=== PATIENT | female | born 1955 | race Caucasian/White ===

== ENCOUNTER 2019-02-02 12:57 | Emergency (ER) | payer OTHER ==
[2019-02-02 13:10] VITALS: BP 176/82; PULSE 82; O2SAT 95
--- NOTE | 2019-02-02 13:23 | ERPHSYRPT ---
- History of Present Illness Time Seen by Provider: 02/02/19 13:22 Source: patient Exam Limitations: no limitations Patient Subjective Stated Complaint: Pt started a medrol dose pack 2 days ago and her sugar today is 242, takes Metformin and Jardiance for diabetes, pt is concerned that her sugar it too high Triage Nursing Assessment: Pt walked into the ER with a stable gait, BS 191 with ER Accucheck, reports that her sugar went up to 242 today and that's the highest it has been, started Medrol dose pack 2 days ago for her right shoulder , hypertensive, doesn't appear to be in any distress Physician History: Pt started a medrol dose pack 2 days ago and her sugar today is 242, takes Metformin and Jardiance for diabetes, pt is concerned that her sugar it too high Timing/Duration: today Associated Symptoms: denies symptoms Allergies/Adverse Reactions: doxycycline Allergy (Verified 02/02/19 13:09) morphine Allergy (Verified 02/02/19 13:09) penicillin G Allergy (Verified 02/02/19 13:09) prochlorperazine [From Compazine] Allergy (Verified 02/02/19 13:09) prochlorperazine edisylate [From Compazine] Allergy (Verified 02/02/19 13:09) prochlorperazine maleate [From Compazine] Allergy (Verified 02/02/19 13:09) Home Medications: Furosemide [Lasix] 20 mg PO DAILY 05/29/15 [History] Lisinopril 10 mg [Zestril 10 MG] 20 mg PO BID 05/29/15 [History] Metformin HCl [Glucophage] 1,000 mg PO BID 05/29/15 [History] Pravastatin Sodium 40 mg PO DAILY 05/29/15 [History] Verapamil HCl 120 mg PO BID 05/29/15 [History] Cyclobenzaprine HCl [Flexeril] 5 mg PO DAILY 02/02/19 [History] Empagliflozin [Jardiance] 25 mg PO DAILY 02/02/19 [History] Methylprednisolone Packet [Medrol Dosepack] 4 mg PO UD 02/02/19 [History] Hx Tetanus, Diphtheria Vaccination/Date Given: No Hx Influenza Vaccination/Date Given: No Hx Pneumococcal Vaccination/Date Given: Yes - Review of Systems Constitutional: No Fever, No Chills Eyes: No Symptoms Ears, Nose, & Throat: No Symptoms Respiratory: No Cough, No Dyspnea Cardiac: No Chest Pain, No Edema, No Syncope Abdominal/Gastrointestinal: No Abdominal Pain, No Nausea, No Vomiting, No Diarrhea Genitourinary Symptoms: No Dysuria Musculoskeletal: No Back Pain, No Neck Pain Skin: No Rash Neurological: No Dizziness, No Focal Weakness, No Sensory Changes Psychological: No Symptoms Endocrine: No Symptoms All Other Systems: Reviewed and Negative - Past Medical History Pertinent Past Medical History: No Neurological History: Migraines ENT History: No Pertinent History Cardiac History: Hypertension, Other Respiratory History: No Pertinent History Endocrine Medical History: Diabetes Type II Musculoskeletal History: No Pertinent History GI Medical History: GERD, Irritable Bowel History: No Pertinent History Psycho-Social History: No Pertinent History Female Reproductive Disorders: No Pertinent History Other Medical History: medication for DMII, palpations of the heart, syncope, loop recorder in the chest - Past Surgical History Past Surgical History: Yes Neuro Surgical History: No Pertinent History Cardiac: No Pertinent History Respiratory: No Pertinent History Gastrointestinal: Cholecystectomy Genitourinary: No Pertinent History Musculoskeletal: Orthopedic Surgery Female Surgical History: Hysterectomy Other Surgical History: TONSILS. BACK SURGERY. 2 ORTHOSCOPIC KNEE SURGERYS. BLADDER REPAIR WITH MESH/VAGINAL HERNIA REPAIR - Social History Smoking Status: Never smoker Exposure to second hand smoke: No Drug Use: none Patient Lives Alone: No - Female History Hx Now: No - Nursing Vital Signs Nursing Vital Signs: Initial Vital Signs Temperature 97.8 F 02/02/19 13:00 Pulse Rate 82 02/02/19 13:00 Blood Pressure 176/82 02/02/19 13:00 O2 Sat by Pulse Oximetry 95 02/02/19 13:00 Pain Scale Pain Intensity 1 - Physical Exam General Appearance: no apparent distress, alert Eye Exam: PERRL/EOMI, eyes nml inspection Ears, Nose, Throat Exam: normal ENT inspection, TMs normal, pharynx normal, moist mucous membranes Neck Exam: normal inspection, non-tender, supple, full range of motion Respiratory Exam: normal breath sounds, lungs clear, No respiratory distress Cardiovascular Exam: regular rate/rhythm, normal heart sounds, normal peripheral pulses Gastrointestinal/Abdomen Exam: soft, normal bowel sounds, No tenderness, No mass Back Exam: normal inspection, normal range of motion, No CVA tenderness, No vertebral tenderness Extremity Exam: normal inspection, normal range of motion, pelvis stable Neurologic Exam: alert, oriented x 3, cooperative, normal mood/affect, nml cerebellar function, nml station & gait, sensation nml, No motor deficits Skin Exam: normal color, warm, dry, No rash Lymphatic Exam: No adenopathy SpO2: 95 - Course Nursing assessment & vital signs reviewed: Yes - Progress Progress: improved Counseled pt/family regarding: diagnosis, need for follow-up - Departure Departure Disposition: Home Clinical Impression: Hyperglycemia, drug-induced Hyperglycemia due to type 2 diabetes mellitus Qualifiers: Diabetes mellitus dedicated intermodal truck driver insulin use: without dedicated intermodal truck driver use Qualified Code(s ): E11.65 - Type 2 diabetes mellitus with hyperglycemia Condition: Stable Critical Care Time: No Referrals: KATHIE LEI DO [Primary Care Provider] - Instructions: Hyperglycemia, Adult (DC) Additional Instructions: Discharge/Care Plan ADDIE BRIZUELA was seen on 02/02/19 in the Emergency Room. The patient was counseled regarding Diagnosis,Lab results, Imaging studies, need for follow up and when to return to the Emergency Room. Prescriptions given: Discharge Note I have spoken with the patient and/or caregivers. I have explained the patient' s condition, diagnosis and treatment plan based on the information available to me at this time. I have answered the patient's and/or caregiver's questions and addressed any concerns. The patient and/or caregivers have as good understanding of the patient's diagnosis, condition and treatment plan as can be expected at this point. The vital signs have been stable. The patient's condition is stable and appropriate for discharge from the emergency department. The patient will pursue further outpatient evaluation with the primary care physician or other designated or consulting physician as outlined in the discharge instructions. The patient and/or caregivers are agreeable to this plan of care and follow-up instructions have been explained in detail. The patient and/or caregivers have received these instruction. The patient/and or caregivers are aware that any significant change in condition or worsening of symptoms should prompt an immediate return to this or the closest emergency department or call 911.
== END 2019-02-02 13:35 | disposition home or self-care (01) ==
LOC: ED 12:57
DX: E11.65 Type 2 diabetes mellitus with hyperglycemia (principal); Z79.4 Long term (current) use of insulin; Z79.899 Other long term (current) drug therapy
CPT/HCPCS: 82962; 99283